=== PATIENT | female | born 1940 | race Caucasian/White ===

== ENCOUNTER → 2017-12-10 | Outpatient (CLI) | payer MEDICARE, OTHER ==
--- NOTE | 2017-12-13 10:26 | MM ---
Reason for exam: screening (asymptomatic). Last mammogram was performed 4 years and 10 months ago. History: Patient is postmenopausal. Taking estrogen for 8 years. Taking progesterone for 8 years. Physical Findings: A clinical breast exam by your physician is recommended on an annual basis and results should be correlated with mammographic findings. MG 3D Screening Mammo W/Cad Bilateral CC and MLO view(s) were taken. Prior study comparison: January 27, 2013, bilateral digital screening mammo w/CAD. May 15, 2011, bilateral digital screening mammo w/CAD. There is a benign appearing stable left upper outer quadrant mass back to 2010. Benign appearing vasculra bilateral calcifications. No suspicious abnormality. No significant changes when compared with prior studies. ASSESSMENT: Benign, BI-RAD 2 RECOMMENDATION: Routine screening mammogram of both breasts in 1 year.
== END | disposition home or self-care (01) ==
LOC: RADMAMWWP 08:01
PROVIDERS: ATTEND Family Medicine
DX: Z12.31 Encounter for screening mammogram for malignant neoplasm of breast (principal)
CPT/HCPCS: 77063; 77067

== ENCOUNTER → 2019-04-25 | Outpatient (CLI) | payer MEDICARE, OTHER | END | disposition home or self-care (01) | LOC: LABWHC1 10:20 | PROVIDERS: ATTEND Family Medicine | DX: A04.72 Enterocolitis due to Clostridium difficile, not specified as recurrent (principal); R68.83 Chills (without fever) | CPT/HCPCS: 36415; 87040 ==

== ENCOUNTER → 2019-05-09 | Outpatient (CLI) | payer MEDICARE, OTHER ==
--- NOTE | 2019-05-09 11:04 | CT ---
EXAMINATION TYPE: CT angio abdomen pelvis DATE OF EXAM: 05/09/2019 COMPARISON: NONE HISTORY: 78-year-old female with acute abdomen pain TECHNIQUE: Contiguous axial scanning of the abdomen and pelvis following administration of 100 ml Iso luther 70 IV contrast followed by a 50mL saline bolus. Coronal/sagittal MIP reconstructions were perform ed. 3-D reconstructions generated on a dedicated independent workstation. CT DLP: 1231 mGycm Automated exposure control for dose reduction was used. FINDINGS: Hepatic dome is excluded as is the heart. Emphysematous change within the visualized lower lungs. Bulky severe atherosclerotic calcifications within the upper abdominal aorta. The aorta here is a patricia iber of 2.1 cm while the patent lumen as a caliber of 8 mm. Severe atherosclerotic calcifications at the origin of the celiac axis with vessel occlusion. Suspect some collateral flow reconstituting a diminutive hepatic artery. Severe atherosclerotic calcificatio ns along the proximal to mid splenic artery. Collateral flow likely reconstitutes the distal splenic artery. Severe atherosclerotic calcifications within the origin and proximal aspect of the SMA and additional scattered focal moderate to severe atherosclerotic calcifications along the midportion. Mild atherosclerotic narrowing at the origin of the bilateral moyer renal arteries. There may be a severe narrowing at the origin of the ISAIAS which otherwise remains patent. No dilated small bowel, free fluid, or free air. No mesenteric or retroperitoneal lymphadenopathy. Left-sided colonic diverticulosis without pericolonic inflammatory change. Uterus is anteverted. Prominent periuterine varices and a dilated left gonadal vein. Bladder is underdistended. Neither ovary clearly delineated from adjacent bowel loops. No abnormal fl uid collection the pelvis or pelvic lymphadenopathy. Bones: Degenerative changes at the hips. Facet arthropathy mid to lower lumbar spine. Bulging disc L4 -L5. IMPRESSION: 1. 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 COLLATERAL FLOW LIKELY RECONSTITUTES T HE HEPATIC AND SPLENIC ARTERIES. 2. SEVERE ATHEROSCLEROTIC NARROWING AT THE ORIGIN AND ALONG THE PROXIMAL TO MID SMA. 3. SUSPECT SEVERE NARROWING AT THE ISAIAS ORIGIN IS WELL. THE VESSEL REMAINS PATENT. FINDINGS PLACE THE PATIENT AT RISK FOR MESENTERIC ISCHEMIA. 4. NO CURRENT BOWEL ISCHEMIA, PNEUMATOSIS, OR FREE AIR SEEN. 5. SEVERE BULKY ATHEROSCLEROTIC CALCIFICATIONS WITHIN THE UPPER ABDOMINAL AORTA NARROWING THE PATENT LUMEN DOWN TO 8 MM. 6. LEFT-SIDED CLONIC DIVERTICULOSIS WITHOUT ACUTE DIVERTICULITIS.
== END | disposition home or self-care (01) ==
LOC: RADCTMAIN 07:49
PROVIDERS: ATTEND Family Medicine
DX: I70.0 Atherosclerosis of aorta (principal); I70.8 Atherosclerosis of other arteries; K57.30 Diverticulosis of large intestine without perforation or abscess without bleeding; I25.10 Atherosclerotic heart disease of native coronary artery without angina pectoris
CPT/HCPCS: 82565; 84520; 36415; 74174; Q9967